=== PATIENT | male | born 1990 | race Caucasian/White ===

== ENCOUNTER 2017-10-18 08:12 | Emergency (ER) | payer OTHER ==
[2017-10-18] MEDS ORDERED: ONDANSETRON 4 MG/2 ML VIAL IVP ONE ×2 (08:55→09:53)
[2017-10-18] MEDS ORDERED: ONDANSETRON 4 MG/2 ML VIAL ONE (08:56)
[2017-10-18] MEDS ORDERED: NS 1,000 ML IV ONE ×3 (09:03→09:05)
[2017-10-18 09:04] LABS: PLATELET COUNT 282 10^3/uL (150-400)
--- NOTE | 2017-10-18 09:04 | EDPHY ---
H & P Stated Complaint: N/V/D SINCE 1 AM - Personal History Current Tetanus/Diphtheria Vaccine: Yes Current Tetanus Diphtheria and Acellular Pertussis (TDAP): Yes - Medical/Surgical History Hx Asthma: Yes Hx Chronic Respiratory Disease: No Hx Diabetes: No Hx Cardiac Disease: No Hx Renal Disease: No Hx Cirrhosis: No Hx Alcoholism: No Hx HIV/AIDS: No Hx Splenectomy or Spleen Trauma: No Other PMH: VSD; asthma; L wrist sx - Social History Smoking Status: Never smoked Time Seen by Provider: 10/18/17 08:55 HPI/ROS: CHIEF COMPLAINT: Nausea vomiting diarrhea since this morning HISTORY OF PRESENT ILLNESS: 19-year-old male generally healthy no history chronic abdominal pathology or abdominal surgeries, multiple family member sick with gastroenteritis like symptoms recently complaining of nausea vomiting diarrhea since approximately 1:00 a.m.. 12 episodes of vomiting. No abdominal pain. No fever or chills. No flu-like symptoms. No testicular or complaints or pain. REVIEW OF SYSTEMS: A ten point review of systems was performed and is negative with the exception of the items mentioned in the HPI PAST MEDICAL & SURGICAL HISTORY: No History of chronic abdominal disease or surgeries SOCIAL HISTORY:Nonsmoker PHYSICAL EXAM (Prior to examination, patient consented to physical exam, hands were washed and my usual and customary physical exam procedures followed) 1) GENERAL: Well-developed, well-nourished, alert and oriented. Appears nontoxic 2) HEAD: Normocephalic, atraumatic 3) HEENT: Pupils equal, round, reactive to light bilaterally. Sclera anicteric. Nasopharynx, oropharynx, clear, no lesions. No tonsillar enlargement or exudate. Dry mucous membrane 4) NECK: Full range of motion, no meningeal signs. 5) LUNGS: Clear auscultation bilaterally, no wheezes, no rhonchi, no retractions. 6) HEART: Regular rate and rhythm, no murmur, no heave, no gallop. 7) ABDOMEN: No guarding, no rebound, no focal tenderness, negative McBurney's, negative Tinoco's, negative Rovsing's, negative peritoneal sign, unable to elicit any abdominal pain on exam 8) MUSCULOSKELETAL: Moving all extremities, no focal areas of tenderness, no obvious trauma. No peripheral edema or discoloration. 9) BACK: No CVA tenderness, no midline vertebral tenderness, no fluctuance, no step-off, no obvious trauma, no visual or palpable abnormality. 10) SKIN: No rash, no petechiae. 11) Psychiatric: Patient is oriented X 3, there is no agitation. DIFFERENTIAL DIAGNOSIS: My differential diagnosis includes, but is not limited to, acute appendicitis, acute cholecystitis, bowel obstruction, acute pancreatitis, testicular torsion, gastritis The patient understands that this diagnosis is provisional and can never be 100% accurate. This is a partial list of diagnoses considered. These considerations are based on history, physical exam, past history and reassessment. (Suzan Finn) Constitutional: Initial Vital Signs Temperature (C) 37.0 C 10/18/17 08:16 Heart Rate 67 10/18/17 08:16 Respiratory Rate 15 10/18/17 08:16 Blood Pressure 118/81 H 10/18/17 08:16 O2 Sat (%) 96 10/18/17 08:16 O2 Delivery Mode Room Air Allergies/Adverse Reactions: ceftriaxone sodium [From Rocephin] Allergy (Verified 06/14/15 18:20) Home Medications: Medication Instructions Recorded Ondansetron Odt [Zofran Odt] 4 mg PO Q4PRN PRN #10 tab 10/18/17 Medical Decision Making ED Course/Re-evaluation: 9:10 a.m.: Care of patient under supervision of primary Supervising physician Dr Noonan . The patient has no abdominal pain either subjectively or objectively. At time doubt acute surgical abdominal pathology. He describes multiple family members have been sick with similar symptoms. Will administer IV hydration, antiemetic and re-evaluate. 9:59 a.m.: Re-evaluation, complaining of continued nausea. 1032 am: Patient was re-evaluated with serial examinations most recently at that time. He appears more comfortable. Re-examined his abdomen which remained soft no guarding or rebound no focal tenderness no McBurney's point pain. At this time I think that acute surgical abdominal pathology is less than likely. I therefore do not think that imaging studies are currently indicated. He has been observed tolerating oral intake. Plan will be discharge home with usual customary dietary precautions , and antiemetic. He has also given usual customary precautions. He feels comfortable with this plan. (Suzan Finn) PHYSICIAN DOCUMENTATION: The patient was evaluated and managed by the Physician Loading Machine Operator. My co- signature indicates that I have reviewed this chart and I agree with the findings and plan of care as documented. I am the secondary supervising physician. (Jalil Noonan) - Data Points Laboratory Results: Laboratory Results 10/18/17 08:20 10/18/17 08:20 10/18/17 10/18/17 08:20 08:20 WBC 8.62 10^3/uL 10^3/uL (3.80-9.50) RBC 5.34 10^6/uL 10^6/uL (4.40-6.38) Hgb 16.0 g/dL g/dL (13.7-17.5) Hct 45.3 % % (40.0-51.0) MCV 84.8 fL fL (81.5-99.8) MCH 30.0 pg pg (27.9-34.1) MCHC 35.3 g/dL g/dL (32.4-36.7) RDW 13.2 % % (11.5-15.2) Plt Count 282 10^3/uL 10^3/uL (150-400) MPV 9.4 fL fL (8.7-11.7) Neut % (Auto) 85.8 % H % (39.3-74.2) Lymph % (Auto) 7.8 % L % (15.0-45.0) Letcher % (Auto) 4.5 % % (4.5-13.0) Eos % (Auto) 0.9 % % (0.6-7.6) Baso % (Auto) 0.5 % % (0.3-1.7) Nucleat RBC Rel Count 0.0 % % (0.0-0.2) Absolute Neuts (auto) 7.40 10^3/uL H 10^3/uL (1.70-6.50) Absolute Lymphs (auto) 0.67 10^3/uL L 10^3/uL (1.00-3.00) Absolute Monos (auto) 0.39 10^3/uL 10^3/uL (0.30-0.80) Absolute Eos (auto) 0.08 10^3/uL 10^3/uL (0.03-0.40) Absolute Basos (auto) 0.04 10^3/uL 10^3/uL (0.02-0.10) Absolute Nucleated RBC 0.00 10^3/uL 10^3/uL (0-0.01) Immature Gran % 0.5 % % (0.0-1.1) Immature Gran # 0.04 10^3/uL 10^3/uL (0.00-0.10) Sodium 144 mEq/L mEq/L (135-145) Potassium 4.4 mEq/L mEq/L (3.5-5.2) Chloride 104 mEq/L mEq/L (97-110) Carbon Dioxide 23 mEq/l mEq/l (22-31) Anion Gap 17 mEq/L H mEq/L (8-16) BUN 17 mg/dL mg/dL (7-23) Creatinine 0.8 mg/dL mg/dL (0.7-1.3) Estimated GFR > 60 Glucose 102 mg/dL H mg/dL (70-100) Calcium 9.5 mg/dL mg/dL (8.5-10.4) Total Bilirubin 1.1 mg/dL mg/dL (0.1-1.4) Conjugated Bilirubin 0.3 mg/dL mg/dL (0.0-0.5) Unconjugated Bilirubin 0.8 mg/dL mg/dL (0.0-1.1) AST 30 IU/L IU/L (17-59) ALT 49 IU/L IU/L (21-72) Alkaline Phosphatase 69 IU/L IU/L (38-126) Total Protein 7.4 g/dL g/dL (6.3-8.2) Albumin 4.6 g/dL g/dL (3.5-5.0) Lipase 31 IU/L IU/L (23-300) Medications Given: Discontinued Medications Sodium Chloride (Ns) 1,000 mls @ 0 mls/hr IV ONCE ONE PRN Reason: Wide Open Stop: 10/18/17 09:04 Last Admin: 10/18/17 09:15 Dose: 1,000 mls Sodium Chloride (Ns) 1,000 mls @ 0 mls/hr IV ONCE ONE PRN Reason: Wide Open Stop: 10/18/17 09:04 Last Admin: 10/18/17 09:15 Dose: 1,000 mls Sodium Chloride (Ns) 1,000 mls @ 0 mls/hr IV EDNOW ONE; Wide Open PRN Reason: Protocol Stop: 10/18/17 09:06 Last Admin: 10/18/17 09:27 Dose: Not Given Ondansetron HCl (Zofran) 4 mg IVP EDNOW ONE Stop: 10/18/17 08:56 Last Admin: 10/18/17 08:59 Dose: 4 mg Ondansetron HCl (Zofran) 4 mg IVP EDNOW ONE Stop: 10/18/17 09:54 Last Admin: 10/18/17 09:55 Dose: 4 mg Departure - Departure Disposition: Home, Routine, Self-Care Clinical Impression: Volume depletion Nausea & vomiting Qualifiers: Vomiting type: unspecified Vomiting Intractability: non-intractable Qualified Code(s): R11.2 - Nausea with vomiting, unspecified Diarrhea Qualifiers: Diarrhea type: presumed infectious Qualified Code(s): R19.7 - Diarrhea, unspecified Condition: Good Instructions: Acute Nausea and Vomiting (ED) Additional Instructions: Seek immediate medical attention if you develop new or worsening symptoms, if you develop fevers, chills, inability to tolerate oral intake or any other symptoms that concerns you. Referrals: [facility],. [Clinic] - 10/21/17 Prescriptions: Ondansetron Odt [Zofran Odt] 4 mg PO Q4PRN PRN #10 tab PRN Reason: Nausea
[2017-10-18 10:13] VITALS: RESP 14
[2017-10-18 12:58] VITALS: BP 106/43; PULSE 70; TEMP 98.8; O2SAT 96
== END 2017-10-18 12:57 | disposition home or self-care (01) ==
DX: E86.9 Volume depletion, unspecified (principal); J45.909 Unspecified asthma, uncomplicated
CPT/HCPCS: 96374; J2405

== ENCOUNTER 2017-10-21 09:42 | Emergency (ER) | payer OTHER ==
[2017-10-21 09:47] VITALS: RESP 16
--- NOTE | 2017-10-21 10:02 | EDPHY ---
H & P Stated Complaint: N/V/D continues;seen here Fri for same c/o Source: Patient, Family () Exam Limitations: No limitations - Personal History Current Tetanus Diphtheria and Acellular Pertussis (TDAP): Yes - Medical/Surgical History Hx Asthma: Yes Hx Chronic Respiratory Disease: No Hx Diabetes: No Hx Cardiac Disease: No Hx Renal Disease: No Hx Cirrhosis: No Hx Alcoholism: No Hx HIV/AIDS: No Hx Splenectomy or Spleen Trauma: No Other PMH: VSD; asthma; L wrist sx - Social History Smoking Status: Never smoked Time Seen by Provider: 10/21/17 10:01 HPI/ROS: HPI: This is a 27-year-old male who presents with Chief Complaint: N/V/D continues;seen here Fri for same c/o Location: GI Quality: Nausea, vomiting, diarrhea Duration: 4 days Signs and Symptoms: no fever, + nausea, + vomiting, no hematemesis, no blood in stool, no abdominal bloating, + diarrhea, + back pain, no urinary symptoms, no testicular/groin pain, no indigestion, no chest pain, no shortness of breath Timing: Acute, intermittent episodes Severity: Moderate to severe Context: Patient has a history of GERD but has been controlled by diet for the last 3 years and no longer takes medications re-presented for the 2nd time to the emergency room with complaints of nausea, vomiting more than 5-10 times per day; today is to dry heaves and sputum, diarrhea 3-5 times per day and lower abdominal cramping that radiates into his back. Patient's symptoms started /early Saturday morning. Daughter had similar symptoms that lasted 24 hr earlier in the week. had similar symptoms 2 weeks ago that lasted 1 day as well. Patient has no history of abdominal surgeries/chronic abdominal etiology. Patient was given Zofran to take home and use but patient reports that it makes him feel worse. called and got a prescription for Phenergan 12.5 mg tabs that had mild relief. and patient are extremely concerned as symptoms have now lasted for 4 days. Denies fever/blood in stool/hematemesis/ hemorrhoids/chronic constipation/chest pain/shortness of breath. Not a regular alcohol user. Modifying Factors: See above Comment: ROS: see HPI Constitutional: No fever, no chills, no weight loss Eyes: No blurred vision Respiratory: No shortness of breath, no cough Cardiovascular: No chest pain, no palpitations Gastrointestinal: No nausea, no vomiting, no diarrhea, no hematemesis, no blood in stool Genitourinary: No dysuria, no blood in urine Extremities: No myalgias, no edema Neurologic: No weakness, no numbness Skin: No rashes, no petechiae Hematologic: No bruising, no bleeding MEDICAL/SURGICAL/SOCIAL HISTORY: Medical history: Generally healthy. Does not take any regular medications. Surgical history: Denies Social history: . Employed. CONSTITUTIONAL: Ill but nontoxic appearing adult white male, awake and alert, no obvious distress HEENT: Atraumatic and normocephalic, PERRL, EOMI. Tympanic membranes clear. Oropharynx clear, no exudate and moist pink mucosa. Airway patent. No lymphadenopathy. No meningismus. Cardiovascular: Normal S1/S2, regular rate, regular rhythm, without murmur rub or gallop. PULMONARY/CHEST: Symmetrical and nontender. Clear to auscultation bilaterally. Good air movement. No accessory muscle usage. ABDOMEN: Soft, nondistended, lower abdominal mild tenderness, no rebound, no guarding, no peritoneal signs, no masses or organomegaly. No CVAT. Hyperactive bowel sounds heard x4 quadrants. EXTREMITIES: 2/2 pulses, strength 5/5, no deformities, no clubbing, no cyanosis or edema. NEUROLOGICAL: no focal neuro deficits. GCS 15. SKIN: Warm and dry, no erythema. no rash. Good capillary refill. (Alexander,Temi) Constitutional: Initial Vital Signs Temperature (C) 37.1 C 10/21/17 09:45 Heart Rate 56 L 10/21/17 09:45 Respiratory Rate 16 10/21/17 09:45 Blood Pressure 121/65 H 10/21/17 09:45 O2 Sat (%) 97 10/21/17 09:45 O2 Delivery Mode Room Air O2 (L/minute) 91 Allergies/Adverse Reactions: ceftriaxone sodium [From Rocephin] Allergy (Unknown, Verified 10/21/17 09:44) Home Medications: Medication Instructions Recorded Ondansetron Odt [Zofran Odt] 4 mg PO Q4PRN PRN #10 tab 10/18/17 Prochlorperazine Maleate 25 mg CO Q6 PRN #12 suppr 10/21/17 [Compazine 25mg supp (*)] Promethazine HCl 25 mg RC Q6 PRN #12 supp.rect 10/21/17 Medical Decision Making ED Course/Re-evaluation: Labs, urinalysis, IV fluids, IV medications, CT abdomen and pelvis scan ordered 1013: Patient given 2 L normal saline and IV promethazine 25 mg 1044: Labs reviewed; no leukocytosis; no transaminitis; no pancreatitis. Sodium and anion gap slightly elevated No signs of sepsis 1100: Dr. Bolivar called the ER and updated him on the patient's presentation, laboratory results, plan of care. He advises he is going to come to the emergency room to consult on the patient. 1120: Called by Dr. Campos who advised CT abdomen and pelvis scan shows no signs of appendicitis, colitis, diverticulitis, obstruction, perforation, pyelonephritis. 1123: Reassessed patient. Just walked back and forth to the bathroom give urine sample. Reports loose bowel movement but no vomiting. Complains that he still has nausea. Another 1 L of normal saline and IV Zofran ordered. Urinalysis shows no signs of infection, specific gravity within normal limits. 1315: Appreciate Dr. Bolivar consultation. He feels that this is a nonsurgical abdomen. Recommends discharge home with promethazine and Compazine suppositories. Patient has received a total of 3 L normal saline in the emergency room. Has only had 1 episode of loose stool during 4 hr emergency room visit. This patient was seen under the supervision of my secondary supervising physician. I evaluated care for this patient independently. (Temi Munoz) Differential Diagnosis: Differential diagnosis includes but is not limited to gastroenteritis, dehydration, colitis, gastritis, pancreatitis. (Temi Munoz) Other Provider: The patient was evaluated and managed by the Physician Power Mule Operator. I discussed the patient's presentation and course with the midlevel provider with them and agree with the evaluation. My co-signature indicates that I have reviewed this chart and I agree with the findings and plan of care as documented. I am the secondary supervising physician. (Ariana Cao) - Data Points Laboratory Results: Laboratory Results 10/21/17 09:50 10/21/17 09:50 Medications Given: Discontinued Medications Sodium Chloride (Ns) 1,000 mls @ 0 mls/hr IV EDNOW ONE; Wide Open PRN Reason: Protocol Stop: 10/21/17 10:04 Last Admin: 10/21/17 10:05 Dose: 1,000 mls Sodium Chloride (Ns) 1,000 mls @ 0 mls/hr IV EDNOW ONE; Wide Open PRN Reason: Protocol Stop: 10/21/17 10:04 Last Admin: 10/21/17 10:51 Dose: 1,000 mls Sodium Chloride (Ns) 1,000 mls @ 0 mls/hr IV EDNOW ONE; Wide Open PRN Reason: Protocol Stop: 10/21/17 11:24 Last Admin: 10/21/17 11:49 Dose: 1,000 mls Ondansetron HCl (Zofran) 4 mg IVP EDNOW ONE Stop: 10/21/17 11:24 Last Admin: 10/21/17 11:48 Dose: 4 mg Promethazine HCl (Phenergan) 25 mg IVP EDNOW ONE Stop: 10/21/17 10:10 Last Admin: 10/21/17 10:25 Dose: 25 mg Departure - Departure Disposition: Home, Routine, Self-Care Clinical Impression: Gastroenteritis Condition: Good Instructions: Promethazine (Into the rectum), Dehydration (ED), Gastroenteritis (ED) Additional Instructions: Consume a minimum of 8-10 glasses of water or electrolyte fluid replacement drinks that include Gatorade, Powerade, Pedialyte. Eat a bland diet for the next 48 hours and then slowly advance as tolerated. Take Compazine or Phenergan suppositories as needed for nausea, vomiting. There is no improvement over the next 3-4 days, call Dr. Bolivar office for follow -up appointment. Referrals: Aden Bolivar MD [Medical Doctor] - 3-4 days, if not improved Prescriptions: Prochlorperazine Maleate [Compazine 25mg supp (*)] 25 mg CO Q6 PRN #12 suppr PRN Reason: Nausea/Vomiting, Use 1st Promethazine HCl 25 mg RC Q6 PRN #12 supp.rect PRN Reason: Nausea/Vomiting, Use 2nd
[2017-10-21] MEDS ORDERED: NS 1,000 ML IV ONE ×3 (10:03→11:23)
[2017-10-21] MEDS ORDERED: PROMETHAZINE HCL 25 MG/ML INJ IVP ONE (10:09)
[2017-10-21 10:11] LABS: PLATELET COUNT 252 10^3/uL (150-400)
[2017-10-21] MEDS ORDERED: IOPAMIDOL (ISOVUE-300) 100 ML BTL ONE (10:33)
[2017-10-21] MEDS ORDERED: ONDANSETRON 4 MG/2 ML VIAL IVP ONE (11:23)
[2017-10-21 13:24] VITALS: BP 113/64; PULSE 45; TEMP 98.1; O2SAT 100
--- NOTE | 2017-10-26 21:30 | GCON ---
[f rep st] CONSULTATION DATE OF CONSULTATION: 10/21/2017 HISTORY OF PRESENT ILLNESS: Patient is a 27-year-old male, seen in the ER because of lower abdominal pain. He has presented with nausea, vomiting, and diarrhea. He has had that for several days, in f act was seen in the ER [address] scan was done which reveals no evidence of appendicitis, fermin wel obstruction, or other major findings. He describes the pain as frequent, nausea and emesis with no blood in the emesis, and is not particularly bilious. He has frequent diarrhea, which has shown n o signs of blood. He describes the pain in is lower abdomen radiating into his back as well. ALLERGIES: Rocephin. MEDICATIONS: Zofran, Phenergan and Compazine. PAST MEDICAL HISTORY: No major surgeries or serious hospitalizations. FAMILY HISTORY: Noncontributory. REVIEW OF SYSTEMS: Negative on a full 10-point review of systems, except related to the HPI, and is positive for GERD. SOCIAL HISTORY: Also, he does not smoke. PHYSICAL EXAMINATION: GENERAL: An alert, but ill-appearing 27-year-old male, who is in no acute dis tress. HEAD and NECK: Reveals no adenopathy, oral lesions or icterus. CHEST: Clear. CARDIAC: Re gular rhythm. ABDOMEN: Soft, mildly distended. He has some active bowel sounds. He is mildly, dif fusely, lower abdominally tender, but no rebound or guarding, and no hernias present. GENITALIA: No rmal. EXTREMITIES: Full range of motion. SKIN: No petechiae, rashes or other lesions. PSYCHIATRI C: Reveals him to be oriented, alert, and cooperative. IMPRESSION: Probable gastrointestinal viral syndrome. No evidence of surgical abdomen at this time. I would recommend treating with Compazine suppositories since he is unable to keep the Zofran or Ph energan down orally. He has been rehydrated in the ER and should be able to go home. I am happy to keep him in the hospital if he is not able to be discharged. /[id number]/MODL
== END 2017-10-21 13:31 | disposition home or self-care (01) ==
DX: K52.9 Noninfective gastroenteritis and colitis, unspecified (principal); J45.909 Unspecified asthma, uncomplicated; E86.9 Volume depletion, unspecified
CPT/HCPCS: 96374; J2405; J2550; Q9967